=== PATIENT | female | born 1950 | race Caucasian/White ===

== ENCOUNTER → 2018-06-10 | Outpatient (CLI) | payer BC ==
[~2018-06-10] MED LIST: BONIVA150 MG PO; IBUPROFEN 600600 M1 PO; LUNESTA3 MG PO; NORCO 5-325 TA1 EACH PO; PAIN & FEVER325 MG PO; WELLBUTRIN XL300 M1 PO
== END ==
LOC: RAD 13:57
DX: M81.0 Age-related osteoporosis without current pathological fracture (principal); M25.562 Pain in left knee

== ENCOUNTER → 2020-06-19 | Outpatient (CLI) | payer BC | LOC: ULTRA 11:32 → RAD 11:32 | PROVIDERS: ATTEND Nurse Practitioner | DX: N63.20 Unspecified lump in the left breast, unspecified quadrant (principal) ==

== ENCOUNTER → 2020-06-20 | Outpatient (CLI) | payer BC | LOC: ULTRA 12:08 | PROVIDERS: ATTEND Nurse Practitioner | DX: N63.20 Unspecified lump in the left breast, unspecified quadrant (principal) ==

== ENCOUNTER → 2021-03-29 | Outpatient (CLI) | payer BC | LOC: RAD 11:22 | PROVIDERS: ATTEND Nurse Practitioner | DX: M51.16 Intervertebral disc disorders with radiculopathy, lumbar region (principal); M48.061 Spinal stenosis, lumbar region without neurogenic claudication; M41.86 Other forms of scoliosis, lumbar region ==